=== PATIENT | female | born 1960 | race Caucasian/White ===

== ENCOUNTER 2021-04-09 11:37 | Emergency (ER) | payer SELFPAY ==
[~2021-04-09] VITALS: Ht 157.5 cm; Wt 43.1 kg
--- NOTE | 2021-04-09 12:54 | PHYS DOC ---
Past Medical History Past Medical History: COPD Additional Past Medical Histor: CHRONIC BACK/HIP PAIN Past Surgical History: Tubal ligation, Other Additional Past Surgical Histo: HERNIA Smoking Status: Current Every Day Smoker Alcohol Use: None Drug Use: None General Adult EDM: Chief Complaint: SHORTNESS OF BREATH HPI: HPI: 60-year-old female with history of COPD, smoking presents to the emergency department complaining of lack of appetite, nausea, vomiting, diarrhea, chest pain for 2 days. She also reports fatigue, low-grade fever, abdominal pain. Denies any blood in her vomit or stool. She admits that her chest pain is in the middle of her chest, was made worse by an anxious moment earlier today when she was in an argument. Reports the chest pain is subsided at this time. Admits to some mild shortness of breath. Review of Systems: Review of Systems: Constitutional: Denies fever or chills. Eyes: Denies change in vision, pain. HENT: Denies congestion or sore throat. Respiratory: Admits to shortness of breath, denies cough. Cardiovascular: Admits to chest pain, denies edema. GI: Admits to abdominal pain, nausea, vomiting, diarrhea, lack of appetite. : Denies change in urination, dysuria. Musculoskeletal: Denies extremity pain, or trauma. Skin: Denies rash, skin change. Neurologic: Denies headache, focal weakness. Psychiatric: Denies depression or anxiety. All other systems reviewed as negative except for what was mentioned in the HPI. Heart Score: C/O Chest Pain: Yes HEART Score for Chest Pain: HEART Score for Chest Pain Response (Comments) Value History Moderately Suspicious 1 ECG Normal 0 Age >45 - < 65 1 Risk Factors 1 or 2 Risk Factors 1 Troponin < Normal Limit 0 Total 3 Allergies: Allergies: Allergies Coded Allergies Type Severity Reaction Last Updated Verified Penicillins Allergy Intermediate UNKNOWN 04/09/21 Yes Physical Exam: PE: Constitutional: No acute distress, non-toxic appearance. HENT: Atraumatic, bilateral external ears normal, nose normal. Eyes: PERRLA, EOMI, conjunctiva normal, no discharge. Neck: Normal range of motion, supple, no stridor. Cardiovascular: 2+ radial pulses Lungs & Thorax: No respiratory distress, symmetrical expansion. Slight wheeze auscultated bilaterally Abdomen: Soft, mild midepigastric tenderness Skin: Warm, dry. Extremities: No tenderness, no cyanosis, ROM intact, no edema. Neurologic: Alert and oriented X 3, normal motor function, normal sensory function, no focal deficits noted. Non ataxic gait. GCS 15. Psychologic: Affect normal, judgment normal, mood normal. Current Patient Data: Labs: Laboratory Tests Test 04/09/21 12:45 04/09/21 12:55 04/09/21 13:30 04/09/21 15:07 Troponin I Quantitative < 0.017 ng/mL (0.000-0.055) < 0.017 ng/mL (0.000-0.055) HR-Qtw-H-Type Natriuretic Peptide 1023 pg/mL (0-124) SARS-CoV-2 RNA (OG) Negative (Negative) SARS-CoV-2 Antigen (Rapid) Negative (NEGATIVE) White Blood Count 7.6 x10^3/uL (4.0-11.0) Red Blood Count 3.24 x10^6/uL (3.50-5.40) Hemoglobin 7.6 g/dL (12.0-15.5) Hematocrit 24.0 % (36.0-47.0) Mean Corpuscular Volume 74 fL (79-100) Mean Corpuscular Hemoglobin 23 pg (25-35) Mean Corpuscular Hemoglobin Concent 32 g/dL (31-37) Red Cell Distribution Width 19.7 % (11.5-14.5) Platelet Count 485 x10^3/uL (140-400) Neutrophils (%) (Auto) 57 % (31-73) Lymphocytes (%) (Auto) 33 % (24-48) Monocytes (%) (Auto) 9 % (0-9) Eosinophils (%) (Auto) 0 % (0-3) Basophils (%) (Auto) 1 % (0-3) Neutrophils # (Auto) 4.3 x10^3/uL (1.8-7.7) Lymphocytes # (Auto) 2.5 x10^3/uL (1.0-4.8) Monocytes # (Auto) 0.7 x10^3/uL (0.0-1.1) Eosinophils # (Auto) 0.0 x10^3/uL (0.0-0.7) Basophils # (Auto) 0.1 x10^3/uL (0.0-0.2) Sodium Level 131 mmol/L (136-145) Potassium Level 3.7 mmol/L (3.5-5.1) Chloride Level 94 mmol/L (98-107) Carbon Dioxide Level 31 mmol/L (21-32) Anion Gap 6 (6-14) Blood Urea Nitrogen 6 mg/dL (7-20) Creatinine 0.7 mg/dL (0.6-1.0) Estimated GFR (Cockcroft-Gault) 85.4 BUN/Creatinine Ratio 9 (6-20) Glucose Level 97 mg/dL (70-99) Calcium Level 8.5 mg/dL (8.5-10.1) Magnesium Level 1.9 mg/dL (1.8-2.4) Total Bilirubin 0.2 mg/dL (0.2-1.0) Aspartate Amino Transf (AST/SGOT) 7 U/L (15-37) Alanine Aminotransferase (ALT/SGPT) 11 U/L (14-59) Alkaline Phosphatase 69 U/L (46-116) Total Protein 5.7 g/dL (6.4-8.2) Albumin 2.8 g/dL (3.4-5.0) Albumin/Globulin Ratio 1.0 (1.0-1.7) Lipase 116 U/L (73-393) Urine Collection Type Unknown Urine Color Yellow Urine Clarity Clear Urine pH 6.5 (<5.0-8.0) Urine Specific [place] <=1.005 (1.000-1.030) Urine Protein Negative mg/dL (NEG-TRACE) Urine Glucose (UA) Negative mg/dL (NEG) Urine Ketones (Stick) Trace mg/dL (NEG) Urine Blood Negative (NEG) Urine Nitrite Negative (NEG) Urine Bilirubin Negative (NEG) Urine Urobilinogen Dipstick 0.2 mg/dL (0.2 mg/dL) Urine Leukocyte Esterase Negative (NEG) Urine RBC 0 /HPF (0-2) Urine WBC Occ /HPF (0-4) Urine Squamous Epithelial Cells Mod /LPF Urine Bacteria Few /HPF (0-FEW) Vital Signs: Vital Signs Date Time Temp Pulse Resp B/P (MAP) Pulse Ox O2 Delivery O2 Flow Rate FiO2 04/09/21 15:41 86 18 138/63 (88) 94 Room Air 04/09/21 15:11 88 14 144/65 (91) 93 Room Air 04/09/21 14:41 90 18 138/64 (88) Room Air 04/09/21 14:11 88 17 133/81 (98) Room Air 04/09/21 13:41 86 21 147/66 (93) 97 Room Air 04/09/21 13:12 82 22 162/84 (110) 95 Room Air 04/09/21 12:29 98.4 80 20 178/83 96 Room Air 98.4 EKG: EKG: Normal sinus rhythm rate of 80, no ST-T wave changes, no ectopic beats, normal axis, normal NH, QRS, and QTc intervals. Impression: Normal EKG. interpreted by meAngelito D.O. Radiology/Procedures: Radiology/Procedures: EXAMINATION: CT abdomen and pelvis with IV contrast. INDICATION:60 years, Female, anemia, weight loss, lack of appetite. TECHNIQUE: Axial CT images of the abdomen and pelvis were obtained. Coronal and sagittal reformatted performed. COMPARISON: None. Exposure: One or more of the following individualized dose reduction techniques were utilized for this examination: 1. Automated exposure control 2. Adjustment of the mA and/or kV according to patient size 3. Use of iterative reconstruction technique. FINDINGS: LOWER CHEST: Mild to moderate centrilobular pulmonary emphysema. ABDOMEN/PELVIS: No suspicious focal hepatic lesion. Focal fat infiltration adjacent to falciform ligament. Gallbladder, biliary ducts, spleen and pancreas are noted nodule. No adrenal nodule. No hydronephrosis or nephrolithiasis in either kidney. Subcentimeter hypodensities in both renal cortices, too small to characterize. Small to moderate size hiatal hernia. Mild wall thickening of the duodenal bulb with submucosal edema. No bowel obstruction. Normal appendix. Tortuous abdominal aorta with mild atherosclerotic calcifications, without narrowing or dilatation. No lymphadenopathy in the abdomen or pelvis by size criteria. No pneumoperitoneum or ascites. Mild urinary bladder wall thickening. Unremarkable uterus. MUSCULOSKELETAL: No acute osseous process. Severe degenerative changes in the spine. IMPRESSION: 1. Mild duodenal bulb wall thickening, may represent infectious/inflammatory enteritis. Consider correlation with upper GI endoscopy to exclude peptic ulcer disease, as warranted. 2. Mild wall thickening of the urinary bladder. Consider correlation with urinalysis. Electronically signed by: Eulogio Hutchinson MD (04/09/2021 5:05 PM) Course & Med Decision Making: Course & Med Decision Making Patient with negative CT scan labs are significant for anemia with hemoglobin 7.6, 2 set troponin normal, there is no report of bleeding per the patient. Her anemia is likely chronic although I have nothing to compare this to. I discussed his lab result with the patient, who demonstrated understanding. She does have a primary care doctor and states that she can follow-up with them in less than a week. I advised that she needs repeat blood draws to compare these labs. I also stressed strict return precautions including further progression of symptoms including chest pain, shortness of breath abdominal pain, nausea, vomiting, syncope or any further symptoms she is concerned about. She did pass a p.o. challenge prior to leaving the emergency department. She appears stable and her vital signs are within normal limits. She is comfortable with the plan and return precautions. Due to the radiographic findings for cystitis, we will treat the patient with Macrobid at home. My Orders - ANGELITO MALAVE DO Procedure Category Date Status Time Oxygen Delivery ABIOLA 04/09/21 In Process Ua, Cult If Indicated LAB 04/09/21 Complete 12:50 Portable Chest 1v RAD 04/09/21 Resulted 12:50 Troponin I Stat ABIOLA 04/09/21 In Process 12:50 Nt-Pro Bnp LAB 04/09/21 Complete 12:50 Troponini LAB 04/09/21 Complete 12:50 Troponini LAB 04/09/21 Complete 15:50 Troponini LAB 04/09/21 Logged 18:50 12 Lead Ekg EKG 04/09/21 In Process 12:50 12 Lead Ekg EKG 04/09/21 In Process 13:20 Pulse Oximetry: [facility] 04/09/21 In Process Standing Order 12:50 Iv Ringers,Lactated PHA 04/09/21 Complete 1000ml (Iv Lactated 13:00 Ondansetron Pf PHA 04/09/21 Complete (Zofran) 13:00 Sars Antigen Radha Rapid LAB 04/09/21 Complete 13:04 Sars Cov2 ([place]) LAB 04/09/21 Complete 13:04 Comprehensive LAB 04/09/21 Complete Metabolic Panel 13:15 Magnesium LAB 04/09/21 Complete 13:15 Cbc W Autodiff LAB 04/09/21 Complete 13:15 Lipase LAB 9/2/21 Complete 13:15 Ct Abd Pelv W/ Iv CT 04/09/21 Resulted Contrst Only 16:37 Iohexol 300 Mg/Ml PHA 04/09/21 Complete (Omnipaque 300 Mg/Ml) 16:45 Iohexol 300 Mg/Ml PHA 04/09/21 Complete (Omnipaque 300 Mg/Ml) 16:45 Contrast Given -- PHA 04/09/21 In Process Info Only (Contrast Gi 17:00 Departure Departure Impression: Primary Impression: Anemia Additional Impression: UTI (urinary tract infection) Disposition: HOME / SELF CARE / HOMELESS Condition: STABLE Patient Instructions: Anemia, FAQs, Anemia, Nonspecific-Brief Additional Instructions: As we discussed, your hemoglobin level was low today at 7.6, is advised that you follow-up with your primary care physician less than a week for repeat blood draws and return to the emergency department if you have any chest pain, shortness of breath, abdominal pain, episodes where he passed out, feel faint, start bleeding or have any concerns otherwise You were seen for a urinary tract infection. Please continue to take the antibiotics as prescribed. You should return to the ED if you develop worsening pain, fever, flank pain, inability to eat or drink, or any other new or concerning symptoms. You have been given a prescription for Macrobid. This medicine is an antibiotic for Urinary Tract Infection. The prescription was sent to the [facility] on file Please take as prescribed for the full course of the prescription. Do not stop taking the medicine early if you feel better, as this could risk building antibiotic resistance and may put you at risk for a more harmful infection later. The most common side effect of antibiotics include nausea, vomiting, diarrhea and rash. Please come to be evaluated if you develop any symptoms that are concerning to you. One major adverse effect of antibiotics is the development of a diarrheal illness called c. diff colitis, if you develop an excessive amount of diarrhea or are concerned about this please return to the ER or consult a physician. You were seen in the emergency department and your health condition was deemed not to require admission to the hospital. It is important to realize that we c an only evaluate you during the time that you are in her department. Occasionally health conditions can worsen upon leaving the emergency department. If this were to happen, please return to and allow us the opportunity to reevaluate you. It is a pleasure to take care of your health needs. Return to the ER if your symptoms worsen, do not improve, or if you develop additional sy mptoms that are concerning to you Scripts Nitrofurantoin Monohyd/M-Cryst (MACROBID 100 MG CAPSULE) 100 Mg Capsule 1 CAP PO BID for 7 Days, #14 CAP 0 Refills Prov: ANGELITO MALAVE DO 04/09/21 ANGELITO MALAVE DO Apr 09, 2021 12:54
[2021-04-09] MEDS ORDERED: IV RINGERS,LACTATED 1000ML 1,000 ML IV SCH (13:00)
[2021-04-09] MEDS ORDERED: ONDANSETRON PF 4 MG/2 ML VIAL. IVP ONE (13:00)
--- NOTE | 2021-04-09 13:29 | RAD ---
XR CHEST 1V CLINICAL INDICATIONS: Reason: chest pain / Spl. Instructions: / History: COMPARISON: January 08, 2005. Findings: No acute lung infiltrate or pleural effusion or pulmonary edema or lung mass or pneumothora x is seen. Small hiatal hernia is seen. The heart size, pulmonary vasculature, mediastinum and both h naldo are unremarkable. The osseous structures appear intact. Scoliosis is seen. IMPRESSION: No acute radiographic abnormality is seen. Electronically signed by: Ritesh Sosa MD (04/09/2021 1:27 PM) [id number]
[2021-04-09 15:14] LABS: BILIRUBIN,URINE NEGATIVE (NEG); CLARITY,URINE CLEAR; COLOR,URINE YELLOW; NITRITE,URINE NEGATIVE (NEG); PH,URINE 6.5 (<5.0-8.0); PROTEIN,URINE NEGATIVE (NEG-TRACE); UROBILINOGEN,URINE 0.2 mg/dL (0.2 mg/dL)
[2021-04-09 15:21] LABS: BACTERIA,URINE FEW /HPF (0-FEW); RBC,URINE 0 /HPF (0-2); WBC,URINE OCC /HPF (0-4)
[2021-04-09 15:40] LABS: BASO # 0.1 x10^3/uL (0.0-0.2); BASO % 1 % (0-3); EOS % 0 % (0-3); HEMOGLOBIN 7.6 g/dL (12.0-15.5); LYMPH # 2.5 x10^3/uL (1.0-4.8); LYMPH % 33 % (24-48); MEAN CORPUSCULAR HEMOGLOBIN 23 pg (25-35); MEAN CORPUSCULAR HGB CONC 32 g/dL (31-37); MEAN CORPUSCULAR VOLUME 74 fL (79-100); MONO # 0.7 x10^3/uL (0.0-1.1); MONO % 9 % (0-9); NEUT # 4.3 x10^3/uL (1.8-7.7); NEUT % 57 % (31-73); PLATELET COUNT 485 x10^3/uL (140-400); RED BLOOD COUNT 3.24 x10^6/uL (3.50-5.40); RED CELL DISTRIBUTION WIDTH 19.7 % (11.5-14.5); WHITE BLOOD COUNT 7.6 x10^3/uL (4.0-11.0)
[2021-04-09 15:53] LABS: CALCIUM 8.5 mg/dL (8.5-10.1); CREATININE 0.7 mg/dL (0.6-1.0); GFR 85.4; POTASSIUM 3.7 mmol/L (3.5-5.1)
[2021-04-09 15:59] LABS: ALBUMIN 2.8 g/dL (3.4-5.0); MAGNESIUM 1.9 mg/dL (1.8-2.4); TOTAL BILIRUBIN 0.2 mg/dL (0.2-1.0); TOTAL PROTEIN 5.7 g/dL (6.4-8.2)
[2021-04-09] MEDS ORDERED: IOHEXOL 300 MG/ML 100ML VIAL. IV ONE ×2 (16:45)
[2021-04-09 16:52] VITALS: BP 164/72
[2021-04-09] MEDS ORDERED: CONTRAST GIVEN. MC PRN (17:00)
--- NOTE | 2021-04-09 17:07 | RAD ---
EXAMINATION: CT abdomen and pelvis with IV contrast. INDICATION:60 years, Female, anemia, weight loss, lack of appetite. TECHNIQUE: Axial CT images of the abdomen and pelvis were obtained. Coronal and sagittal reformatted performed. COMPARISON: None. Exposure: One or more of the following individualized dose reduction techniques were utilized for thi s examination: 1. Automated exposure control 2. Adjustment of the mA and/or kV according to patient size 3. Use of iterative reconstruction technique. FINDINGS: LOWER CHEST: Mild to moderate centrilobular pulmonary emphysema. ABDOMEN/PELVIS: No suspicious focal hepatic lesion. Focal fat infiltration adjacent to falciform ligament. Gallbladde r, biliary ducts, spleen and pancreas are noted nodule. No adrenal nodule. No hydronephrosis or nephr olithiasis in either kidney. Subcentimeter hypodensities in both renal cortices, too small to charact erize. Small to moderate size hiatal hernia. Mild wall thickening of the duodenal bulb with submucosal edema . No bowel obstruction. Normal appendix. Tortuous abdominal aorta with mild atherosclerotic calcifica tions, without narrowing or dilatation. No lymphadenopathy in the abdomen or pelvis by size criteria. No pneumoperitoneum or ascites. Mild urinary bladder wall thickening. Unremarkable uterus. MUSCULOSKELETAL: No acute osseous process. Severe degenerative changes in the spine. IMPRESSION: 1. Mild duodenal bulb wall thickening, may represent infectious/inflammatory enteritis. Consider sonia elation with upper GI endoscopy to exclude peptic ulcer disease, as warranted. 2. Mild wall thickening of the urinary bladder. Consider correlation with urinalysis. Electronically signed by: Eulogio Hutchinson MD (04/09/2021 5:05 PM) [facility]
[2021-04-09] MEDS ORDERED: NITR100C62 PO (17:40)
[2021-04-09 17:55] LABS: ANISOCYTOSIS SLIGHT; HYPOCHROMIA SLIGHT; PLT ESTIMATE INCREASED (ADEQUATE); POIKILOCYTOSIS SLIGHT
[2021-04-09 17:56] LABS: MICROCYTOSIS SLIGHT
[2021-04-09 17:57] LABS: OVALOCYTES FEW; POLYCHROMASIA PRESENT; SCHISTOCYTES OCC; TARGET CELLS FEW
[2021-04-09 17:59] LABS: TEAR DROP CELLS FEW
== END 2021-04-09 18:10 | disposition home or self-care (01) ==
LOC: ER 11:37
DX: N39.0 Urinary tract infection, site not specified (principal); D64.9 Anemia, unspecified; J44.9 Chronic obstructive pulmonary disease, unspecified; F17.200 Nicotine dependence, unspecified, uncomplicated; Z20.822 Contact with and (suspected) exposure to COVID-19; Z98.51 Tubal ligation status; Z88.0 Allergy status to penicillin
CPT/HCPCS: 36415; 71045; 74177; 80053; 81001; 83690; 83735; 83880; 84484; 85025; 87426; 93005; 96361; 96374; 99285; J2405; J7120; Q9967; U0003; U0005